=== PATIENT | male | born 1955 | race Caucasian/White ===

== ENCOUNTER 2019-03-04 06:04 | Day surgery (SDC) | payer BC, SELFPAY ==
[2019-02-24 10:25] VITALS: BMI 29.7
[2019-03-04] VITALS (18 sets, daily range): BP systolic 95–135; BP diastolic 56–83; PULSE 62–80; RESP 11–18; TEMP 36.1–36.8; O2SAT 88–100; BMI 29.6
--- NOTE | 2019-03-04 | DI.RAD.S_ITS ---
PROCEDURE: XR CERVICAL SPINE 2V OR 3V INDICATIONS: C 56 AND C67 ANTERIOR DISCECTOMY AND DSC REPLACE TECHNIQUE: 2 view(s) of the cervical spine were acquired. COMPARISON: [facility] CARLA Resendez, XR CERVICAL SPINE 2 OR 3 VIEWS, 12/18/2018, 8:12. FINDINGS: Prosthetic discs seen at 2 spinal levels in the cervical spine, presumably C5-C6 and C6-C7 although definitive anatomic landmarks not included in the lateral projection [id number] recommend correlation real-time observations. There is expected intraoperative alignment. Dictated by: Preston Pritchard M.D. on 03/04/2019 at 11:11 Approved by: Preston Pritchard M.D. on 03/04/2019 at 11:13
[2019-03-04] MEDS: LACTATED RINGERS 1,000 ML 42 ML IV (07:00)
--- NOTE | 2019-03-04 07:30 | PM.PREOP ---
Pre-operative Note Interval Note History & Physical reviewed/Exam performed by Physician: Yes Changes to H&P: No
[2019-03-04] MEDS: CEFAZOLIN 2 GM/100 ML FROZ.PIGGY IV ×2 (07:45→16:55)
--- NOTE | 2019-03-04 08:12 | SUR.OPER ---
Supine on padded OR bed, head on donut, towel roll between scapulae vertically, arms padded and tucked at sides, legs uncrossed, safety belt at thigh, pillow under knees, tape over blanket over lower legs.
[2019-03-04] MEDS: SODIUM CHLORIDE 0.9% 1,000 ML, GENTAMICIN 80 MG IRR (08:20)
[2019-03-04] MEDS: THROMBIN (RECOMBINANT) 5,000 UNIT VIAL 5000 UNIT TOP ×2 (08:21→09:09)
--- NOTE | 2019-03-04 09:28 | PM.OP.1 ---
Operative Date/Time/Diagnoses Date of procedure: 03/04/19 Time of procedure: 09:28 Pre-op diagnosis: cervical disc herniation Post-op diagnosis: same Procedure & Clinicians Procedure: C5-6, C6-7 anterior diskectomy an artificial disc replacements Use of microscope Same procedure as scheduled: Yes Indications: [age] year old male with intractable pain from cervical disc herniation. They had failed conservative management and requested operative intervention. Risks and benefits of surgery were discussed and appropriate consents were obtained. Surgeon: Walt Briggs Chef Kitchen Manager: Merry Donato Anesthesia Type: General Operative Notes Findings: None Closure Type: primary Specimen(s): none sent Prosthetic devices, grafts, tissues, transplants, or devices: Estefani Mobi-C Estimated Blood Loss (mL): 10 Blood products transfused: none Procedure in detail: Patient was brought to the operating room and intubated on the table. A time-out was performed. Preoperative antibiotics were given. The neck was prepped and draped in the standard sterile fashion. Using a skin fold, we made a 3 cm oblique incision on the left side. We used Bovie to go through the platysma and then did a standard anterolateral blunt dissection down to the precervical fascia. Fascia was nicked and elevated up. A marker was placed and x-ray was taken for localization. We then subperiosteally elevated up the longus colli muscles. Self-retaining retractors were placed. [place] pins were placed under x-ray guidance to be parallel to the endplates. We then brought in the microscope. A scalpel used to perform an annulotomy. We then used a combination of pituitaries and curettes and Kerrison to perform a complete anterior diskectomy at C6-7. We took down the PLL and used Kerrison to remove posterior disc material and osteophytes. At the end we could from the nerve hook cephalad caudally and out the foramen and everything was opened. We distracted open with the parallel machine mover. We then used the horseshoes for sizing. We then used the trials. We then inserted a 17 x 15 x 6 mm size Mobi-C artificial disc replacement under fluoroscopic guidance for positioning. The traction was released and then compressed across the disc and x-ray was checked again. The textile converter was removed. The self-retaining retractors and [place] pins were moved up to the next level at C5-6. We again performed a complete diskectomy with a scalpel, curettes, and Kerrison rongeur is. We took down the PLL and removed the posterior osteophytes and disc material. In the end a nerve hook could be swept cephalad, caudally, and out the neural foramen and everything was opened. We trialed and placed a 15 x 15 x 6 mm Mobi-C artificial disc replacement at C5-6 under fluoroscopic guidance. The pins were compressed and the Borup pins and retractors were removed. The wound was irrigated. Final x-rays were taken. There was no bleeding. The carotid was beating nicely. The platysma was closed. The superficial was closed. The skin was closed. A sterile dressing was placed. They were then extubated and brought to recovery room with no complications. Complications: none Condition: stable Disposition: PACU Plan for aftercare: Overnight admission for observation
--- NOTE | 2019-03-04 09:33 | P.OP_ITS ---
Operative Date/Time/Diagnoses Date of procedure: 03/04/19 Time of procedure: 09:28 Pre-op diagnosis: cervical disc herniation Post-op diagnosis: same Procedure & Clinicians Procedure: C5-6, C6-7 anterior diskectomy an artificial disc replacements Use of microscope Same procedure as scheduled: Yes Indications: [age] year old male with intractable pain from cervical disc herniation. They had failed conservative management and requested operative intervention. Risks and benefits of surgery were discussed and appropriate consents were obtained. Surgeon: Walt Briggs Fashion Director Party Plan Sales: Merry Donato Anesthesia Type: General Operative Notes Findings: None Closure Type: primary Specimen(s): none sent Prosthetic devices, grafts, tissues, transplants, or devices: Estefani Mobi-C Estimated Blood Loss (mL): 10 Blood products transfused: none Procedure in detail: Patient was brought to the operating room and intubated on the table. A time-out was performed. Preoperative antibiotics were given. The neck was prepped and draped in the standard sterile fashion. Using a skin fold, we made a 3 cm oblique incision on the left side. We used Bovie to go through the platysma and then did a standard anterolateral blunt dissection down to the precervical fascia. Fascia was nicked and elevated up. A marker was placed and x-ray was taken for localization. We then subperiosteally elevated up the longus colli muscles. Self-retaining retractors were placed. [place] pins were placed under x-ray guidance to be parallel to the endplates. We then brought in the microscope. A scalpel used to perform an annulotomy. We then used a combination of pituitaries and curettes and Kerrison to perform a complete anterior diskectomy at C6-7. We took down the PLL and used Kerrison to remove posterior disc material and osteophytes. At the end we could from the nerve hook cephalad caudally and out the foramen and everything was opened. We distracted open with the parallel concrete spreader. We then used the horseshoes for sizing. We then used the trials. We then inserted a 17 x 15 x 6 mm size Mobi-C artificial disc replacement under fluoroscopic guidance for positioning. The traction was released and then compressed across the disc and x-ray was checked again. The forming department end finder was removed. The self-retaining retractors and [place] pins were moved up to the next level at C5-6. We again performed a complete diskectomy with a scalpel, curettes, and Kerrison rongeur is. We took down the PLL and removed the posterior osteophytes and disc material. In the end a nerve hook could be swept cephalad, caudally, and out the neural foramen and everything was opened. We trialed and placed a 15 x 15 x 6 mm Mobi-C artificial disc replacement at C5-6 under fluoroscopic guidance. The pins were compressed and the [place] pins and retractors were removed. The wound was irrigated. Final x-rays were taken. There was no bleeding. The carotid was beating nicely. The platysma was closed. The superficial was closed. The skin was closed. A sterile dressing was placed. They were then extubated and brought to recovery room with no complications. Complications: none Condition: stable Disposition: PACU Plan for aftercare: Overnight admission for observation
[2019-03-04] MEDS: HYDROMORPHONE 2 MG INJ 0.5 MG IV ×4 (09:50→10:25)
--- NOTE | 2019-03-04 10:03 | SUR.PHASEI ---
report given to Selina OSEGUERA for my break.
--- NOTE | 2019-03-04 10:07 | SUR.PHASEI ---
assumed care for break relief. HOB elevated, taking ice chips, pain 'a little bit' improved. declines more pain med at this time. Moves freely in bed.
--- NOTE | 2019-03-04 10:19 | SUR.PHASEI ---
Rx given for pain, then c/o of pressure in the left upper/mid chest, states that he feels SOB, no difficulty breathing, returned to O2 at 4LNP and states that it has helped. Denies nausea, radiating pain, no diaphoresis, lungs clear. Dr. Miller present, was informed, no orders give, less restless, resting with eyes closed. Reported to Bill Camacho RN
[2019-03-04] MEDS: LACTATED RINGERS 1,000 ML 125 ML IV (12:29)
[2019-03-04] MEDS: DEXAMETHASONE 4 MG/ML VIAL IV (12:35)
[2019-03-04] MEDS: HYDROCODONE/ACET 5/325 TABLET 1 TAB PO (12:35)
--- NOTE | 2019-03-04 12:53 | PC.NURSE ---
Post-op: Arrived to room 217 AT 1055. Awake and alert, oriented X3. Gauze-tegaderm dressing to anterior neck dry/intact with half-dime sized spot of sanguinous drainage on upper left hand corner. Soft collar in place. Patient denies any issues with breathing or swallowing. Eating lunch at this time, no concerns noted by this advertising copywriter. Medicated with 1 tab Vicodin for 3/10 neck/shoulder pain. Lungs CTA, HRR. BT+, denies N/V. Denies paresthesias. Reports he had numbness/tingling in BUE's which is not present at this time. IV fluids per order, IV site WNL. SCD's to bilateral feet. Oriented to room and call light, encouraged to make needs known. Bed alarm on.
[2019-03-04] MEDS: HYDROMORPHONE 1 MG INJ 0.5 MG IV (15:10)
--- NOTE | 2019-03-04 15:40 | PT.IIE ---
Current Diagnoses Other cervical disc displacement, unspecified cervical region (03/04/19) Surgery Performed Operation Date: 03/04/19 07:45 Actual Procedures p C56 and C67 anterior discectomy and artificial disc replacement - Walt Briggs MD Surgical History (Last Updated 02/24/19 @ 10:36 by Veronica Winn RN) H/O: vasectomy (Acute) Hx of hernia repair (Acute) Hx of repair of right rotator cuff (Acute ~1979) Medical History (Last Updated 02/24/19 @ 10:36 by Veronica Winn RN) Arthritis (Acute) Gout (Acute) HLD (hyperlipidemia) (Acute) HTN (hypertension) (Acute) Hiatal hernia (Acute) Lower back pain (Acute) Neck pain (Acute) Numbness and tingling (Acute) Physical Therapy Inpatient Evaluation/Re-Eval M1 PT/OT-IP Prior Functional Status Start: 03/04/19 12:09 Freq: NEEDED Status: Discharge Protocol: Document 03/04/19 15:40 AB (Rec: 03/04/19 18:36 AB [id number]) Medical Review Prior Functional Status Medical History Reviewed Yes Communication able to make needs known Mobility and Gait pt stated that he is independent with all mobilities and ambulation without AD Social History Household Members spouse Living Arrangements House Number of Floors (Floors) Two Floors Number of Stairs To Enter/Railing? 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 [employer] Evidence M1 PT/OT-IP Prior Functional Status Start: 03/04/19 17:24 Freq: NEEDED Status: Discharge Protocol: Document 03/04/19 15:40 AB (Rec: 03/04/19 18:36 AB [id number]) M2 PT-IP Current Condition Start: 03/04/19 12:09 Freq: NEEDED Status: Discharge Protocol: Document 03/04/19 15:40 AB (Rec: 03/04/19 18:36 AB [id number]) Physical Therapy Current Condition Current Condition Evaluation Date 03/04/19 Treatment Diagnosis s/p C5-6, C6-7 anterior discectomy/ disc replacement; difficulty in walking Onset Date 03/04/19 Precautions Cervical Spine Precautions Soft Collar for Comfort No Heavy Lifting Log Roll M3 PT-IP Subjective Start: 03/04/19 12:09 Freq: NEEDED Status: Discharge Protocol: Document 03/04/19 15:40 AB (Rec: 03/04/19 18:36 AB [id number]) Subjective Physical Therapy Visit Type Type Initial Evaluation Visit Start Time 15:40 Visit Stop Time 16:15 Total Visit Minutes 35 Number of RN GYNECOLOGY Visits 0 Physical Therapy Visit Comments Patient Comments pt agreeable to do PT. Therapy Pain Assessment Pain Present Pain Present Denied Pain M4 PT-IP Mobility and Gait Start: 03/04/19 12:09 Freq: NEEDED Status: Discharge Protocol: Document 03/04/19 15:40 AB (Rec: 03/04/19 18:36 AB [id number]) PT-Bed Mobility Assessment Rolling Type of Rolling Log Rolling Level of Assist Standby Assistance Supine to Sit Supine to Sit Standby Assistance Sit to Supine Sit to Supine Standby Assistance Scooting Scooting to Edge of Bed Standby Assistance PT-Transfer Assessment Sit to and From Stand Sit to and from Stand Standby Assistance Equipment Transfer Assistive Device Gait Belt Orthotic/Prosthetic Devices or Brace: Yes Gait Assessment Gait Gait Assistance Required: Standby Assistance Distance (Feet) 300 Able to Maintain Weight Bearing Status Yes During Gait Assistive Devices Assistive Device Gait Belt Orthotic/Prosthetic Devices or Brace: No Factors Limiting Gait Function Factors Limiting Gait Function Limited Range of Motion Stair Climbing Assessment Evaluation Level of Assist On Stairs Standby Assistance Devices Stair Climbing Assistive Devices Right Railing Technique/Endurance Stair Climbing Direction Ascend and Descend Stair Climbing Technique Step Over Step Number of Steps Climbed 3 Query Text: Stair Climbing Set # Repetitions (reps) 2 PT-Balance Assessment Sitting Balance and Reactions Static Sitting Balance Ability Normal Dynamic Sitting Balance Ability Normal Standing Balance and Reactions Static Standing Balance Ability Good Dynamic Standing Balance Ability Good Device Used without AD M5 PT-IP Objective Assessments Start: 03/04/19 12:09 Freq: NEEDED Status: Discharge Protocol: Document 03/04/19 15:40 AB (Rec: 03/04/19 18:36 AB [id number]) Orientation Orientation/Cognition Level of Alertness Alert Orientation Name Age Birthday Month Date Year Day of Week Place Situation Language Function Ability No Deficits Noted Safety Awareness Understands Safety Issues Memory Description No Deficits Noted Gross Range of Motion Lower Extremity ROM Assessment Within Functional Limits Strength Lower Extremity Strength Assessment Within Functional Limits Coordination Assessment Gross Coordination Gross Coordination WNL Sensation Assessment Sensation Gross Sensation WNL Muscle Tone Muscle Tone WNL Yes M6 PT-IP Treatment Start: 03/04/19 12:09 Freq: NEEDED Status: Discharge Protocol: Document 03/04/19 15:40 AB (Rec: 03/04/19 18:36 AB [id number]) Physical Therapy Treatment Education Education Provided Precautions Post-Op Packet Safety Other Treatments Other Treatment Performed educated on soft collar management. pt was able to jag/doff soft collar independently M7 PT-IP Assessment and Plan Start: 03/04/19 12:09 Freq: NEEDED Status: Discharge Protocol: Document 03/04/19 15:40 AB (Rec: 03/04/19 18:36 AB [id number]) PT Summary Assessment and Plan Potential Rehabilitation Potential Good Status of Condition at Evaluation Stable Summary Impairments Gait Assessment Summary pt is doing well with mobility and plans to go home. spouse will assist pt at home. pt may go home when medically stable. Goals Bed Mobility Goal Independent Transfer Goal Independent Gait Goal Independent Gait Distance 300 Other Goals up/down 4 step with 1 rail mod I Days to Meet Goals 3 Frequency of Treatment Frequency Of Treatment Twice a Day Treatment Plan Physical Therapy Treatment Plan Bed Mobility Training Transfer Training Gait Training Therapeutic Exercise Balance Retraining Post Op Education Discharge Planning Hot or Cold Pack Neuromuscular Re-ed Coordination Retraining Manual Therapy Recommendations To Nursing Amount of Assist Needed Standby Assistance Discharge Recommendations PT Discharge Recommendations Home with Assistance
[2019-03-04] MEDS: NAPROXEN 250 MG TABLET 500 MG PO (16:53)
--- NOTE | 2019-03-04 16:53 | PM.PNPO.1 ---
Subjective Date Patient Seen: 03/04/19 Time Patient Seen: 16:54 Interval history: minimal pain (2/10). arm feels great. Swallowing well. Exam Vital Signs (past 8 hours): - 03/04/19 09:43 03/04/19 09:48 03/04/19 09:52 Temperature 97.6 F Pulse Rate 80 67 68 Respiratory Rate 16 16 12 Blood Pressure 121/83 118/61 95/68 Pulse Oximetry 95 94 96 03/04/19 10:02 03/04/19 10:06 03/04/19 10:12 Temperature Pulse Rate 72 69 69 Respiratory Rate 18 14 11 L Blood Pressure 110/70 100/68 107/63 Pulse Oximetry 95 93 97 03/04/19 10:26 03/04/19 10:31 03/04/19 10:41 Temperature 97.0 F L Pulse Rate 71 66 66 Respiratory Rate 16 14 14 Blood Pressure 102/62 119/71 123/67 Pulse Oximetry 100 98 98 03/04/19 10:50 03/04/19 10:55 03/04/19 11:25 Temperature 98.1 F 97 F L Pulse Rate 63 68 66 Respiratory Rate 16 17 16 Blood Pressure 115/67 130/69 118/65 Pulse Oximetry 99 93 95 03/04/19 11:55 03/04/19 12:55 03/04/19 13:55 Temperature 97.6 F 97.9 F 98.1 F Pulse Rate 62 68 67 Respiratory Rate 16 15 16 Blood Pressure 107/61 120/56 L 135/81 Pulse Oximetry 94 95 92 03/04/19 14:26 03/04/19 14:43 Temperature Pulse Rate Respiratory Rate Blood Pressure Pulse Oximetry 94 88 L Oxygen Delivery Method Room Air Oxygen Flow Rate 0 Const Orientation: alert and oriented x3 Back/Spine/Pelvis Other: cdi, no swelling, 5/5 motor BUE Assessment & Plan Post-op Postoperative Procedures Operation Date: 03/04/19 07:45 Actual Procedures Side Surgeon p C56 and C67 anterior discectomy and artificial disc replacement Walt Briggs MD He's doing well and requests DC home. Discussed DC plans, postop care, etc. DC home Quality VTE Deep Vein Thrombosis/Pulmonary Embolism Present on Admission: No
[2019-03-04] MEDS: HYDROCODONE/ACET 5/325 TABLET 2 TAB PO (17:06)
--- NOTE | 2019-03-04 17:31 | OT.IP.TRT ---
Current Diagnoses Other cervical disc displacement, unspecified cervical region (03/04/19) Surgery Performed Operation Date: 03/04/19 07:45 Actual Procedures p C56 and C67 anterior discectomy and artificial disc replacement - Walt Briggs MD Occupational Therapy Treatment Note M3 OT- IP Subjective and Pain Start: 03/04/19 17:24 Freq: Status: Active Protocol: Document 03/04/19 17:29 [facility] (Rec: 03/04/19 17:31 [facility] [id number]) OT- Subjective Occupational Therapy Visit Type Type Administrative Note Notes Pt doing well and states does not have any issues or concerns for OT needs. Pt has a supportive and pt looking to discharge home today. Pt on O2 while in bed and as pt does not have O2 at home suggested to be off O2. O2 readings dropped from 98-94 %, nursing aware. Therefore discharge OT eval orders.
--- NOTE | 2019-03-04 17:59 | PC.NURSE ---
Pt satisfactory post op course. Denies discomfort. in to see pt. Discharge orders recieved. IV discontinued intact. Home instructions given to pt & w/apparent understanding. Pt escorted by staff via W/C to waiting vehicle. D/C'd in stable condition.
== END 2019-03-04 18:04 | disposition home or self-care (01) ==
LOC: OR 06:07 → AC 11:45
PROVIDERS: PCP Internal Medicine; Visit Provider Orthopaedic Surgery
PROC: (CPT 22856; principal; 2019-03-04 07:45)
DX: M50.222 Other cervical disc displacement at C5-C6 level (principal); I10 Essential (primary) hypertension; E78.5 Hyperlipidemia, unspecified
CPT/HCPCS: 22856; 22858; 72040; 76000; 97161; C1776; J0690; J1100; J1170; J2250; J2405; J2704; J3010